=== PATIENT | female | born 1965 | race African-American/Black ===

== ENCOUNTER 2025-05-07 18:24 | Inpatient (IN) | payer MEDICARE, MEDICAID ==
[~2025-05-07] VITALS: Ht 162.6 cm; Wt 69.4 kg
[2025-05-07 18:35] VITALS: O2SAT 95
[2025-05-07 19:16] LABS: CLARITY URINE CLEAR (CLEAR); COLOR URINE YELLOW (YELLOW); GLUCOSE URINE NEGATIVE (NEGATIVE); KETONES URINE NEGATIVE (NEGATIVE); LEUKOCYTE ESTERASE URINE NEGATIVE (NEGATIVE); NITRITE URINE NEGATIVE (NEGATIVE); OCCULT BLOOD URINE NEGATIVE (NEGATIVE); PH URINE 6.5 (4.5-8.0); PROTEIN URINE NEGATIVE (NEGATIVE); SPECIFIC GRAVITY URINE 1.009 (1.005-1.030); UROBILINOGEN URINE 0.2 E.U./dL (0.2-1.0)
[2025-05-07 19:27] LABS: *AMPHETAMINES SCREEN URINE NEGATIVE (NEGATIVE); *BARBITURATES SCREEN URINE NEGATIVE (NEGATIVE); *BENZODIAZEPINES SCREEN URINE NEGATIVE (NEGATIVE); *COCAINE SCREEN URINE NEGATIVE (NEGATIVE); METHADONE URINE SCREEN NEGATIVE (NEGATIVE); OPIATES URINE SCREEN NEGATIVE (NEGATIVE); PHENCYCLIDINE URINE SCREEN NEGATIVE (NEGATIVE)
[2025-05-07 19:28] LABS: CANNABINOID URINE SCREEN PRESUMPTIVE POSITIVE (NEGATIVE); ECSTASY MDMA SCREEN URINE NEGATIVE (NEGATIVE)
[2025-05-07 19:35] LABS: BASOPHILS % 0.8 % (0.0-2.0); EOSINOPHILS % 1.9 % (0.0-5.0); HEMATOCRIT. 42.3 % (36.0-48.0); HEMOGLOBIN. 14.0 g/dL (12.0-16.0); LYMPHOCYTES % 32.0 % (20.0-50.0); MEAN PLATELET VOLUME 7.6 fl (7.4-10.4); MONOCYTES % 8.1 % (2.0-8.0); NEUTROPHILS % 57.2 % (40.0-76.0); PLATELET 280 x1000/uL (130-400); RED BLOOD CELL COUNT 4.59 mill/uL (4.2-5.4); RED CELL DISTRIBUTION WIDTH 13.6 % (11.6-14.6)
[2025-05-07 19:48] LABS: CREATININE 1.2 mg/dL (0.6-1.0); TROPONIN I HIGH SENSITIVITY < 4 ng/L (3.0-34); UREA NITROGEN BLOOD 15 mg/dL (9-23)
[2025-05-07 19:49] LABS: ETHANOL BLOOD < 10 mg/dL (<10)
[2025-05-07 19:50] LABS: ASPARTATE AMINOTRANSFERASE 13 IU/L (<34); BILIRUBIN DIRECT < 0.1 mg/dL (<=3.0); BILIRUBIN TOTAL 0.3 mg/dL (0.1-1.0); PROTEIN TOTAL 6.0 g/dL (6.0-8.3)
[2025-05-07 19:53] LABS: INR 1.0
[2025-05-07] MEDS: ASPIRIN 325MG EC TABLET PO ONE (21:37)
[2025-05-07] MEDS: CLOPIDOGREL 75MG TABLET PO ONE (21:37)
[2025-05-07] MEDS ORDERED: HYDRALAZINE 20MG/ML VIAL IV PRN (22:00)
[2025-05-07] MEDS ORDERED: ACETAMINOPHEN 325MG TABLET PO PRN (22:00)
[2025-05-07] MEDS ORDERED: ONDANSETRON HCL 4MG/2ML INJ IV PRN (22:00)
[2025-05-07] MEDS ORDERED: DEXTROSE 50% WATER 50ML SYRINGE IV PRN (22:00)
[2025-05-07] MEDS ORDERED: IPRATROPIUM/ALBUTEROL 0.5-3(2.5)MG/3ML NEB HHN PRN (22:00)
[2025-05-07] MEDS ORDERED: IOHEXOL-350 100 ML BOTTLE ONE (22:54)
[2025-05-07 23:42] LABS: TRIGLYCERIDE 81 mg/dL (0-150)
[2025-05-07 23:43] LABS: LDL CHOLESTEROL 115 mg/dL (5-100)
[2025-05-07 23:44] LABS: CREATINE KINASE MB FRACTION 1.4 ng/mL (0.5-3.6); PHOSPHORUS 3.7 mg/dL (2.5-4.9); TROPONIN I HIGH SENSITIVITY < 4 ng/L (3.0-34)
[2025-05-07] MEDS: SODIUM CHLORIDE 0.45% 1,000 ML IV SCH (23:45)
[2025-05-07 23:48] LABS: T4 FREE 1.21 ng/dL (0.89-1.76)
[2025-05-08] VITALS: BP 158/90; PULSE 18; TEMP 36.3
[2025-05-08] MEDS ORDERED: AMLO-905 PO (01:08)
[2025-05-08 03:51] VITALS: BP 141/105; PULSE 89; RESP 20; TEMP 36.4736
[2025-05-08 04:00] VITALS: BP 149/106; PULSE 18; RESP 18; TEMP 36.1; O2SAT 96
[2025-05-08 06:05] LABS: CREATININE 1.0 mg/dL (0.6-1.0); UREA NITROGEN BLOOD 16 mg/dL (9-23)
[2025-05-08 06:07] LABS: ASPARTATE AMINOTRANSFERASE 12 IU/L (<34)
[2025-05-08 06:08] LABS: BILIRUBIN TOTAL 0.2 mg/dL (0.1-1.0); PROTEIN TOTAL 6.1 g/dL (6.0-8.3)
[2025-05-08 06:30] LABS: BASOPHILS % 0.7 % (0.0-2.0); EOSINOPHILS % 2.3 % (0.0-5.0); HEMATOCRIT. 42.2 % (36.0-48.0); HEMOGLOBIN. 14.1 g/dL (12.0-16.0); LYMPHOCYTES % 28.4 % (20.0-50.0); MEAN PLATELET VOLUME 8.2 fl (7.4-10.4); MONOCYTES % 8.6 % (2.0-8.0); NEUTROPHILS % 60.0 % (40.0-76.0); PLATELET 285 x1000/uL (130-400); RED BLOOD CELL COUNT 4.58 mill/uL (4.2-5.4); RED CELL DISTRIBUTION WIDTH 13.7 % (11.6-14.6)
[2025-05-08] MEDS: BLOOD SUGAR DIAGNOSTIC STRIP TEST SCH (06:39)
[2025-05-08] MEDS: PANTOPRAZOLE 40MG DR TABLET PO SCH (06:47)
[2025-05-08 08:00] VITALS: BP 127/87; PULSE 72; RESP 18; TEMP 37.1; O2SAT 100
[2025-05-08] MEDS: CLOPIDOGREL 75MG TABLET PO SCH (08:12)
[2025-05-08] MEDS: ASPIRIN 81MG TABLET PO SCH (08:12)
[2025-05-08 12:00] VITALS: BP 146/95; PULSE 83; RESP 19; TEMP 37.1; O2SAT 97
[2025-05-08] MEDS ORDERED: ATORVASTATIN CALCIUM 40MG TABLET PO SCH (21:00)
== END 2025-05-08 15:30 | disposition left against medical advice (07) | DRG 65 ==
LOC: ER 18:24 → EDBEDREQ 20:58 → ENRESERV 21:32 → 8WST 22:09
PROVIDERS: ADMIT Internal Medicine; ATTEND Internal Medicine
DX: I63.89 Other cerebral infarction (principal); N17.9 Acute kidney failure, unspecified; E78.5 Hyperlipidemia, unspecified; R29.701 NIHSS score 1; N18.9 Chronic kidney disease, unspecified; J45.909 Unspecified asthma, uncomplicated; I12.9 Hypertensive chronic kidney disease with stage 1 through stage 4 chronic kidney disease, or unspecified chronic kidney disease; Z53.29 Procedure and treatment not carried out because of patient's decision for other reasons; E11.22 Type 2 diabetes mellitus with diabetic chronic kidney disease; F17.200 Nicotine dependence, unspecified, uncomplicated; Z55.6 Problems related to health literacy; Z79.02 Long term (current) use of antithrombotics/antiplatelets; Z79.82 Long term (current) use of aspirin; Z86.73 Personal history of transient ischemic attack (TIA), and cerebral infarction without residual deficits
CPT/HCPCS: 36415; 70496; 70498; 70551; 71045; 80048; 80053; 80061; 80076; 80305; 80320; 81003; 82550; 82553; 82962; 83036; 83605; 83735; 83880; 84100; 84145; 84439; 84443; 84484; 85025; 93005; 93970; 97162; 97165; 97530; 99291; Q9967; G0480